=== PATIENT | female | born 1955 | race Caucasian/White ===

== ENCOUNTER 2023-08-16 06:20 | Day surgery (SDC) | payer BC, MEDICARE ==
[~2023-08-16 06:20] MED LIST: Lactated Ringers 1,000 ML IV SCH; Sodium Chloride 0.9% 10 ML Syringe FLUSH PRN
[2023-08-16] MEDS ORDERED: Lidocaine 2% 5 ML SDV INJECT ONE (06:21)
[2023-08-16] MEDS ORDERED: Propofol 200 MG/20 ML SDV IV ONE (06:21)
[2023-08-16] MEDS ORDERED: Simethicone Drops 40 MG/0.6 ML 30 ML Bottle PO ONE (07:34)
== END 2023-08-16 09:05 | disposition home or self-care (01) ==
LOC: FB.SDS 06:20
PROVIDERS: ATTEND Surgery
DX: D12.6 Benign neoplasm of colon, unspecified (principal); K63.5 Polyp of colon; F17.210 Nicotine dependence, cigarettes, uncomplicated
CPT/HCPCS: 88305; A9270-GY; J2704; J7120